=== PATIENT | male | born 1965 | race Caucasian/White ===

== ENCOUNTER → 2019-08-18 | Outpatient (CLI) | payer BC ==
--- NOTE | 2019-08-21 09:25 | PCVCIMAG ---
APPROVED REPORT Study performed: 08/18/2019 11:40:03 Exam: Stress Echocardiogram Indication: Hyperlipidemia, Hypertension Patient Location: Echo lab Stress Nurse: Kaylene Temple RN Ht: 5 ft 11 in HR: 79 bpm BP: 110/80 mmHg Rhythm: NSR Medical History Medical History: Diabetes, Family hx of CAD Procedure The patient underwent an Exercise Stress Test using the Saul Protocol. Blood pressure, heart rate, and EKG were monitored. An Echocardiogram was performed by photonics engineering technician in four stages in quad fashion. At peak stress, four selected images were obtained and placed side by side with resting images for comparison. Stress Test Details Stress Test: Exercise stress testing was performed using a Saul protocol. HR Resting HR: 79 bpmMax Heart Rate (APMHR): 168 bpm Max HR Achieved: 160 bpmTarget HR (85% APMHR): 142 bpm % of APMHR: 95 Recovery HR: 95 bpm HR response to stress: Normal HR response to stress BP Resting BP: 110/80 mmHg Max BP: 156/80 mmHg Recovery BP: 122/78 mmHg BP response to stress: Normal blood pressure response to stress. ECG Resting ECG: Sinus Rhythm Stress ECG: Sinus Rhythm Recovery ECG: Sinus Rhythm Clinical Reason for Termination: Maximal effort Exercise duration: 12 min 50 sec Highest Stage Achieved: Stage 4: 4.2 mph at 16% grade. Exercise capacity: 16.80 METs Overall Exercise Capacity for Age: Excellent Stress ECG Conclusion 1. subjectively negative for ischemia 2. electrocardiographically negative for ischemia 3. satisfactory functinal capacity Pre-Stress Echo The resting Echocardiogram showed normal left ventricular contractility with an estimated Ejection Fraction of about 55-60%. Normal wall motion in all segments on baseline images. Post-Stress Echo The stress Echocardiogram showed normal left ventricular contractility with an estimated Ejection Fraction of about 60-65%. Normal augmentation of wall motion in all segments on post stress images. Clinical No clinical or ECG evidence for ischemia. Conclusion Clinical Response: Ischemic Exercise Capacity: Superior Stress ECG Response: Non-ischemic Stress Echo Images: Non-ischemic The left ventricle is normal in size and wall thickness in both the rest and stress images. Trace mitral regurgitation. No other significant valvular abnormalties. 1. low risk study 2. no arrhythmia provoked Other Information Study Quality: Good <Conclusion> The left ventricle is normal in size and wall thickness in both the rest and stress images. Trace mitral regurgitation. No other significant valvular abnormalties. 1. low risk study 2. no arrhythmia provoked
== END | disposition home or self-care (01) ==
LOC: PCVCIMAG 11:04
PROVIDERS: ATTEND Internal Medicine
DX: E11.9 Type 2 diabetes mellitus without complications (principal); I10 Essential (primary) hypertension; E78.5 Hyperlipidemia, unspecified
CPT/HCPCS: 93325; 93351